=== PATIENT | female | born 1965 | race Caucasian/White ===

== ENCOUNTER → 2019-01-22 | Outpatient (CLI) | payer OTHER ==
[~2019-01-22] MED LIST: ALBUTEROL0.09 MG/A2 IH; ANTIVERT/2525 MG PO; BACTRIM DS 8001 TA1 PO; DAYPRO600 M1 PO; DOXYCYCLINE MO100 MG PO; MEDROL DOSEPAK4 MG PO; MULTIVITAMIN FO1 CAP PO; NKHM; OMEPRAZOLE20 MG PO; PERCOCET 325 MG1 TA2 PO; PHENERGAN W/DM120 ML PO; PREDNICOT20 MG PO; PROZAC10 MG PO; VALIUM5 MG PO; VICODIN 5/500 505 MG PO; VICODIN 500 MG-1 TAB PO
== END | disposition home or self-care (01) ==
LOC: RAD 11:35
DX: M16.11 Unilateral primary osteoarthritis, right hip (principal); M25.751 Osteophyte, right hip; M54.5 Low back pain; Z90.710 Acquired absence of both cervix and uterus